=== PATIENT | female | born 1960 | race Caucasian/White ===

== ENCOUNTER 2016-09-03 08:00 | Inpatient (IN) | payer OTHER, BC ==
[2016-08-21 14:05] VITALS: BMI 18.4
[2016-09-07] MEDS ORDERED: CEFAZOLIN 1 GM/D5W 50 ML IVPB ONE (09:36)
[2016-09-07] MEDS ORDERED: ROPIVICAINE 0.2%/MORPH PF/KETOROLAC - 51ML DISP.SYRINGE IA ONE (09:36)
[2016-09-07] MEDS ORDERED: TRANEXAMIC ACID 1000 MG/10 ML VIAL IVPUSH ONE (09:36)
[2016-09-07] MEDS: CELECOXIB 200 MG CAPSULE PO ONE ×2 (10:00→15:19)
[2016-09-07] MEDS: oxyCODONE HCL 10 MG SUSTAINED ACTING TABLET PO ONE ×2 (10:00→15:19)
[2016-09-07] MEDS: GABAPENTIN 300 MG CAPSULE (FP) PO ONE ×2 (10:00→15:19)
[2016-09-07] MEDS ORDERED: BUPIVACAINE HCL/PF (5 MG/ML) 30 ML VIAL IJ ONE (10:08)
[2016-09-07] MEDS ORDERED: DEXAMETHASONE SOD PHOSPHATE/PF 10 MG/ML SDV ONE (10:08)
[2016-09-07] MEDS ORDERED: MIDAZOLAM HCL 2 MG/2 ML SINGLE DOSE VIAL ONE (10:08)
[2016-09-07] MEDS ORDERED: SODIUM CHLORIDE 0.9% P/F 10 ML VIAL IJ ONE (10:09)
[2016-09-07] MEDS ORDERED: ceFAZolin SODIUM 1 GM VIAL ONE ×2 (10:13→10:18)
[2016-09-07] MEDS ORDERED: PROPOFOL 20 ML ONE ×3 (10:13→13:49)
[2016-09-07] MEDS ORDERED: BUPIVACAINE HCL/PF 0.5% (5MG/ML) 10 ML VIAL ONE (10:16)
[2016-09-07] MEDS ORDERED: VANCOMYCIN 1,000 MG VIAL (RESTRICTED TO ID ONLY) ONE (10:18)
[2016-09-07 10:39] LABS: MCH 27.2 pg (25.7-33.7); MCHC 33.5 g/dl (32.0-36.0); MEAN CELL VOLUME 81.2 fl (80-96); MEAN PLT VOLUME 7.3 fl (7.5-11.1); PLATELET COUNT 485 K/MM3 (134-434); WHITE BLOOD COUNT 8.9 K/mm3 (4.0-10.8)
--- NOTE | 2016-09-07 11:28 | HP ---
Admitting History and Physical - Admission Chief Complaint: right knee OA History of Present Illness: 56yo female with R knee OA x several months, has severe pain and has failed conservative management. Indicated for TKA History Source: Patient, Medical Record Limitations to Obtaining History: No Limitations - Past Medical History ...LMP: 04/21/16 Heme/Onc: Yes: Anemia Rheumatology: Yes: Rheumatoid Arthritis Additional Past Medical History: See full PMH in written chart - Past Surgical History Additional Past Surgical History: See full PMH in written chart - Smoking History Smoking history: Former smoker Have you smoked in the past 12 months: No If you are a former smoker, when did you quit?: 2001 - Alcohol/Substance Use Hx Alcohol Use: Yes (SOCIALLY) Home Medications - Allergies Allergies/Adverse Reactions: Allergies Allergy/AdvReac Type Severity Reaction Status Date / Time No Known Drug Allergies Allergy Verified 08/21/16 13:54 - Home Medications Home Medications: Ambulatory Orders Ascorbate Calcium [Vitamin C] 1,000 mg PO DAILY 08/21/16 Calcium Carbonate [Calcium] 1,000 mg PO DAILY 08/21/16 Cholecalciferol (Vitamin D3) [Vitamin D3] 2,000 unit PO DAILY 08/21/16 Diclofenac Sodium [Voltaren -] 75 mg PO BID 08/21/16 Gabapentin 300 mg PO HS PRN 08/21/16 Glucosa Blakely 2Kcl/Chondroitin Blakely [Glucosamine & Chondroitin Cap] 1 each PO DAILY 08/21/16 Tramadol HCl 25 mg PO DAILY PRN 08/21/16 Physical Examination Vital Signs: Vital Signs Temperature 98.2 F 09/07/16 09:39 Pulse Rate 93 H 09/07/16 09:39 Respiratory Rate 18 09/07/16 09:39 Blood Pressure 121/81 09/07/16 09:39 O2 Sat by Pulse Oximetry (%) Constitutional: Yes: Well Nourished, No Distress, Calm Eyes: Yes: WNL, Conjunctiva Clear HENT: Yes: WNL, Atraumatic, Normocephalic Neck: Yes: WNL, Supple Cardiovascular: Yes: WNL, Regular Rate and Rhythm Respiratory: Yes: WNL, Regular Gastrointestinal: Yes: WNL, Soft ...Rectal Exam: Yes: Deferred Musculoskeletal: Yes: Joint Stiffness, Joint Swelling, Muscle Pain Extremities: Yes: WNL Edema: No Peripheral Pulses WNL: Yes Integumentary: Yes: WNL Neurological: Yes: WNL, Alert, Oriented ...Motor Strength: WNL Psychiatric: Yes: WNL, Alert, Oriented Labs: CBC, BMP 09/07/16 10:15 Laboratory Tests 09/07/16 10:15 WBC 8.9 Hgb 10.3 L Hct 30.8 L Plt Count 485 H Imaging - Results X-ray: Image Reviewed Problem List - Problems (1) Osteoarthritis of right knee Code(s): M17.11 - UNILATERAL PRIMARY OSTEOARTHRITIS, RIGHT KNEE Qualifiers: Osteoarthritis type: primary Qualified Code(s): M17.11 - Unilateral primary osteoarthritis, right knee Assessment/Plan 56yo female with R knee OA for TKA
[2016-09-07] MEDS ORDERED: ROPIVACAINE 0.2% 400ML 400 ML ML NR ONE (13:38)
[2016-09-07] MEDS ORDERED: ONDANSETRON 4 MG/2 ML VIAL IVPUSH PRN (13:50)
[2016-09-07] MEDS ORDERED: MAG HYDROX/AL HYDROX/SIMETH 30 ML UNIT-DOSE CUP PO PRN (14:52)
[2016-09-07] MEDS ORDERED: ONDANSETRON 4 MG/2 ML VIAL IVPB PRN (14:52)
[2016-09-07] MEDS ORDERED: MAGNESIUM HYDROX 2400MG/30ML ORAL SUSPENSION 30 ML CUP PO PRN (14:52)
--- NOTE | 2016-09-07 14:52 | OP ---
Operative Note - Note: Operative Date: 09/07/16 Pre-Operative Diagnosis: right knee OA Operation: right total knee replacement Post-Operative Diagnosis: Same as Pre-op Surgeon: Gulshan Pham Gate Attendant: Shyann Mast Anesthesia: Spinal Estimated Blood Loss (mls): 50
[2016-09-07] MEDS ORDERED: LACTATED RINGERS SOLUTION 1,000 ML IV SCH (15:00)
[2016-09-07] MEDS: LACTATED RINGERS SOLUTION 1,000 ML IV SCH (15:21)
[2016-09-07] MEDS: ACETAMINOPHEN 325 MG TABLET (FP) PO SCH ×3 (15:21→20:00)
[2016-09-07] MEDS: KETOROLAC TROMETHAMINE 30 MG/1 ML VIAL IVPUSH SCH ×2 (15:35→22:30)
[2016-09-07] MEDS: traMADol HCL 50 MG TABLET PO SCH ×3 (15:42→22:30)
[2016-09-07] MEDS: CEFAZOLIN 1 GM/D5W 50 ML IVPB SCH (17:58)
[2016-09-07] MEDS ORDERED: GABAPENTIN 300 MG CAPSULE (FP) PO SCH (22:00)
[2016-09-07] MEDS: CELECOXIB 200 MG CAPSULE PO SCH (22:30)
[2016-09-07] MEDS: SENNOSIDES/DOCUSATE COMBO (SENNA PLUS) TABLET (UD) PO SCH (22:31)
[2016-09-07] MEDS: oxyCODONE HCL 10 MG SUSTAINED ACTING TABLET PO SCH (22:31)
[2016-09-07] MEDS: GABAPENTIN 300 MG CAPSULE (FP) PO SCH (22:31)
[2016-09-07] MEDS: ASCORBIC ACID 500 MG TABLET (FP) PO SCH (22:31)
[2016-09-08] MEDS: CEFAZOLIN 1 GM/D5W 50 ML IVPB SCH (01:47)
[2016-09-08] MEDS: traMADol HCL 50 MG TABLET PO SCH ×4 (04:10→21:52)
[2016-09-08] MEDS: KETOROLAC TROMETHAMINE 30 MG/1 ML VIAL IVPUSH SCH ×2 (04:10→08:39)
[2016-09-08] MEDS: ACETAMINOPHEN 325 MG TABLET (FP) PO SCH ×4 (06:26→19:53)
[2016-09-08] MEDS: oxyCODONE HCL 5 MG TABLET PO PRN ×2 (06:27→12:48)
[2016-09-08 08:44] LABS: MCH 26.6 pg (25.7-33.7); MCHC 32.3 g/dl (32.0-36.0); MEAN CELL VOLUME 82.4 fl (80-96); MEAN PLT VOLUME 7.9 fl (7.5-11.1); PLATELET COUNT 475 K/MM3 (134-434); RDW 16.2 % (11.6-15.6); WHITE BLOOD COUNT 12.9 K/mm3 (4.0-10.8)
[2016-09-08 09:01] LABS: ANION GAP 9 (8-16); CALCIUM 8.6 mg/dl (8.4-10.2); CO2 24 mmol/L (22-28); CREATININE 0.5 mg/dl (0.6-1.3); GLUCOSE,RANDOM 79 mg/dl (74-106)
--- NOTE | 2016-09-08 09:34 | SURG ---
Surgery Wood Patternmaker Apprentice Note Wood Patternmaker Apprentice: Shyann Mast PA-C Date of Service: 09/08/16 Diagnosis: right knee OA Procedure: right total knee replacement I was present for the entirety of the operative procedure. For further detail, please refer to operative report. Visit type - Case Type Case Type: Scheduled Admission - Emergency Emergency Visit: No - New patient This patient is new to me today: Yes Date on this admission: 09/08/16 - Critical Care Critical Care patient: No
[2016-09-08] MEDS: oxyCODONE HCL 10 MG SUSTAINED ACTING TABLET PO SCH ×2 (09:59→21:49)
[2016-09-08] MEDS: PANTOPRAZOLE 40 MG TABLET (FP) PO SCH (10:00)
[2016-09-08] MEDS: SENNOSIDES/DOCUSATE COMBO (SENNA PLUS) TABLET (UD) PO SCH ×2 (10:00→21:52)
[2016-09-08] MEDS: ASCORBIC ACID 500 MG TABLET (FP) PO SCH ×2 (10:00→21:49)
[2016-09-08] MEDS: CELECOXIB 200 MG CAPSULE PO SCH ×2 (10:00→21:49)
[2016-09-08] MEDS: ASPIRIN 325 MG TABLET PO SCH (10:00)
[2016-09-08] MEDS: GABAPENTIN 300 MG CAPSULE (FP) PO SCH ×2 (10:00→21:49)
[2016-09-08] MEDS: MULTIVITAMINS (DAILY MVI) TABLET (FP) PO SCH (10:00)
--- NOTE | 2016-09-08 10:57 | PN ---
Progress Note (short form) - Note Progress Note: 56F POD1 s/p TKR under spinal anesthetic with CACB and tibial blocks doing well. AVSS, reports no anesthetic complications, reports that pain is well controlled. Sensory and motor function is intact in both lower extremities, catheter site is clean.
[2016-09-08] MEDS: LACTATED RINGERS SOLUTION 1,000 ML IV SCH (16:23)
[2016-09-09] MEDS: oxyCODONE HCL 5 MG TABLET PO PRN ×2 (01:00→06:51)
--- NOTE | 2016-09-09 01:09 | PN ---
Progress Note (short form) - Note Progress Note: Pt seen and examined yesterday (Wednesday) evening. Doing well. No complaints. AVSS Selected Entries 09/08/16 22:45 Temperature 98.1 F Pulse Rate 75 Respiratory 18 Rate Blood Pressure 121/52 Laboratory Tests 09/08/16 09/08/16 07:40 07:40 WBC 12.9 H D Hgb 9.0 L D Hct 27.9 L Plt Count 475 H Sodium 135 L Potassium 4.4 Chloride 102 Carbon Dioxide 24 Anion Gap 9 BUN 18 Creatinine 0.5 L Random Glucose 79 Calcium 8.6 Gen:NAD RLE: c/d/i, NVID A/P POD#1 s/p R TKA 1. PT/OOB 2. D/C home tomorrow. Problem List - Problems (1) Osteoarthritis of right knee Code(s): M17.11 - UNILATERAL PRIMARY OSTEOARTHRITIS, RIGHT KNEE Qualifiers: Osteoarthritis type: primary Qualified Code(s): M17.11 - Unilateral primary osteoarthritis, right knee
--- NOTE | 2016-09-09 01:43 | DS ---
Physical Examination Vital Signs: Vital Signs Temperature 98.1 F 09/08/16 22:45 Pulse Rate 75 09/08/16 22:45 Respiratory Rate 18 09/08/16 22:45 Blood Pressure 121/52 09/08/16 22:45 O2 Sat by Pulse Oximetry (%) 98 09/08/16 22:45 Labs: CBC, BMP 09/08/16 07:40 09/08/16 07:40 Discharge Summary Reason For Visit: RIGHT KNEE OSTEOARTHRITIS Current Active Problems Osteoarthritis of right knee (Acute) Procedures: Principal: right total knee replacement Hospital Course: Admitted for elective surgery. Procedure performed without complications. Pt received postoperative antibiotic prophylaxis and DVT ppx. Ambulated with physical therapy. Stable for discharge home with outpatient followup. Condition: Stable - Instructions Diet, Activity, Other Instructions: Dr. Pham - Knee Replacement Instructions Keep the Aquacel dressing on until removed in the office in 10-14 days - it is antibacterial and waterproof and you can shower with it on. Call the office for a follow-up appointment with Dr. Frances (Dr. Pham will be out of town on vacation) in 10-14 days. [phone] Take one Aspirin 325mg daily for 6 weeks to prevent blood clots in your legs. Take one Pantoprazole 40mg daily for 6 weeks to protect against heartburn and ulcers. Take Celebrex 200mg twice daily for 30 days to reduce swelling and inflammation. Stop taking Diclofenac until you are done with the Celebrex. Take a multivitamin, vitamin C supplement, and stool softener daily. For pain: *Mild pain (1-3/10): Take 1 Tramadol tablet every 4 hours as needed. Moderate pain (4-6/10): Take 1 Tramadol tablet and 1 Percocet tablet every 4 hours as needed. Severe pain (7-10/10): Take 1 Tramadol tablet and 2 Percocet tablets every 4 hours as needed. Activity: You can put as much weight on the operative leg as you want. Right after you get home, there will be a physical therapist coming to your house to help you walk around and bend/straighten your knee. After your follow-up appointment, you will be sent for more intensive outpatient physical therapy which will include machines and equipment that the home therapist cannot bring to your house. Always use a walker or cane for balance and to prevent falls. Disposition: VNS/HOME HEALTH CARE - Home Medications Comprehensive Discharge Medication List: Ambulatory Orders Ascorbate Calcium [Vitamin C] 1,000 mg PO DAILY 08/21/16 Calcium Carbonate [Calcium] 1,000 mg PO DAILY 08/21/16 Cholecalciferol (Vitamin D3) [Vitamin D3] 2,000 unit PO DAILY 08/21/16 Gabapentin 300 mg PO HS PRN 08/21/16 Glucosa Blakely 2Kcl/Chondroitin Blakely [Glucosamine & Chondroitin Cap] 1 each PO DAILY 08/21/16 Ascorbic Acid [Vitamin C -] 500 mg PO BID tablet 09/09/16 Aspirin [ASA -] 325 mg PO DAILY@0800 tablet 09/09/16 Celecoxib [CeleBREX -] 200 mg PO BID #60 tab 09/09/16 Multivitamins [Multivit ([facility] Formulary)] 1 tab PO DAILY tab 09/09/16 Oxycodone HCl/Acetaminophen [Percocet 5-325 mg Tablet] 1 - 2 tab PO Q4H PRN #60 tablet MDD 8 09/09/16 Pantoprazole Sodium [Protonix -] 40 mg PO DAILY #40 tab 09/09/16 Sennosides/Docusate Sodium [Pericolace -] 1 tablet PO BID tablet 09/09/16 Tramadol HCl [Ultram -] 50 mg PO Q4H PRN #90 tablet MDD 6 09/09/16
[2016-09-09] MEDS: ACETAMINOPHEN 325 MG TABLET (FP) PO SCH ×2 (03:20→08:03)
[2016-09-09] MEDS: traMADol HCL 50 MG TABLET PO SCH ×2 (03:22→09:23)
[2016-09-09 06:40] VITALS: BP 125/59; PULSE 87; TEMP 98.4
[2016-09-09] MEDS: ASPIRIN 325 MG TABLET PO SCH (08:03)
[2016-09-09 09:23] LABS: MCH 26.9 pg (25.7-33.7); MCHC 32.7 g/dl (32.0-36.0); MEAN CELL VOLUME 82.3 fl (80-96); MEAN PLT VOLUME 7.9 fl (7.5-11.1); PLATELET COUNT 392 K/MM3 (134-434); RDW 16.6 % (11.6-15.6)
[2016-09-09] MEDS: GABAPENTIN 300 MG CAPSULE (FP) PO SCH (09:23)
[2016-09-09] MEDS: MULTIVITAMINS (DAILY MVI) TABLET (FP) PO SCH (09:23)
[2016-09-09] MEDS: CELECOXIB 200 MG CAPSULE PO SCH (09:23)
[2016-09-09] MEDS: PANTOPRAZOLE 40 MG TABLET (FP) PO SCH (09:23)
[2016-09-09] MEDS: ASCORBIC ACID 500 MG TABLET (FP) PO SCH (09:23)
[2016-09-09] MEDS: SENNOSIDES/DOCUSATE COMBO (SENNA PLUS) TABLET (UD) PO SCH (09:23)
[2016-09-09] MEDS: oxyCODONE HCL 10 MG SUSTAINED ACTING TABLET PO SCH (09:24)
--- NOTE | 2016-09-09 11:12 | PN ---
Progress Note (short form) - Note Progress Note: POD #2- s/p right total knee replacement under spinal anesthesia/peripheral nerve block. Pt. doing well, getting ready for discharge. Good pain control. Adductor canal catheter removed intact. Discharge pain meds as per ortho.
--- NOTE | 2016-09-09 12:43 | PN ---
Progress Note (short form) - Note Progress Note: Pt seen and examined this morning. Doing well. No complaints. AVSS Selected Entries 09/09/16 09/09/16 06:00 06:39 Temperature 98.4 F Pulse Rate 87 Respiratory 18 Rate Blood Pressure 125/59 O2 Sat by Pulse 99 Oximetry (%) Oxygen Delivery Room Air Method Laboratory Tests 09/09/16 07:47 WBC 9.0 D Hgb 8.6 L Hct 26.4 L Plt Count 392 Gen:NAD RLE: c/d/i, NVID A/P POD#2 s/p R TKA 1. PT/OOB 2. D/C home Problem List - Problems (1) Osteoarthritis of right knee Code(s): M17.11 - UNILATERAL PRIMARY OSTEOARTHRITIS, RIGHT KNEE Qualifiers: Osteoarthritis type: primary Qualified Code(s): M17.11 - Unilateral primary osteoarthritis, right knee
--- NOTE | 2016-09-09 14:39 | PATH ---
Surgical Pathology Report Patient Name: GLENROY FIGUEROA Med. Rec. #: [id number] /Age/Gender: 1960 (Age: 56) / F Account: [id number] Location: [facility] MED[facility] Taken: 09/07/2016 Received: 09/07/2016 Reported: 09/09/2016 Physicians: Gulshan Pham M.D. Specimen(s) Received BONE RIGHT KNEE Clinical History Right knee osteoarthritis Final Diagnosis BONE AND SOFT TISSUE, RIGHT KNEE, REPLACEMENT: DEGENERATIVE JOINT DISEASE. Electronically Signed Yaakov Reese M.D. Gross Description Received in formalin labeled "bone right knee," is an 11.0 x 9.0 x 2.1 cm aggregate of multiple irregular portions of bone and soft tissue. The tibial plateau measures 7.2 x 5.3 x 1.4 cm. There is a 1.3 cm greatest dimension area of eburnation present. The remaining articular surfaces are wagoner-yellow and focally granular. The underlying trabecular bone is yellow and hard. Fur Coat Sewer sections are submitted in one cassette, following decalcification. 09/08/2016 [facility]09/08/2016
--- NOTE | 2016-10-01 20:08 | SPEC ---
DATE OF OPERATION: 09/07/2016 PREOPERATIVE DIAGNOSIS: Right knee osteoarthritis. POSTOPERATIVE DIAGNOSIS: Right knee osteoarthritis. PROCEDURE: Right total knee replacement. ATTENDING: Gulshan Pham MD PHARMACY SERVICES DIRECTOR: GARCIA Nieves ANESTHESIA: Spinal plus sedation. ESTIMATED BLOOD LOSS: 50 mL. COMPLICATIONS: None. SPECIMENS: Resected bone was sent for pathology analysis. DISPOSITION: The patient was transferred to the PACU in stable condition. INDICATIONS: This is a 56-year-old female who presented to the office complaining of severe right knee pain. She was seen and examined by Dr. Pham and diagnosed with right knee osteoarthritis. She was initially treated nonoperatively with injections, medications, and physical therapy but continued to have severe pain and ambulatory dysfunction. The patient was subsequently indicated for a total knee replacement. The risks, benefits and alternatives to the procedure were explained to the patient in great detail and she elected to proceed with the surgery. On the day of surgery, the patient was taken to the operating room and placed on the OR table. Spinal anesthesia was administered by the anesthesiologist. The patient was then positioned supine on the table and all bony prominences were padded. A nonsterile tourniquet was placed on the proximal thigh. The knee was then prepped and draped in the usual sterile fashion and intravenous antibiotics were given for infection prophylaxis. A surgical time-out was then performed with the team, and the patients identity, procedure, side, availability of implants, and the administration of antibiotics was confirmed. The leg was then elevated and exsanguinated, and the tourniquet was inflated. With the knee flexed, a midline incision was made and carried down through the subcutaneous fat to the underlying retinaculum. A medial parapatellar arthrotomy was performed. This was followed by a subperiosteal dissection of the tissue off the proximal, medial tibia. A portion of fat pad was removed from under the patellar tendon, and a small portion of fat was excised off the distal supracondylar femur. The knee was then flexed further and the anterior horn of the lateral meniscus was released from the midline. Next, the anterior and posterior cruciate ligaments were transected. Osteophytes were removed from both the femur and tibia. Grade 4 changes were noted diffusely throughout the knee. Hohmann retractors were then placed around the distal femur. The starting drill was used to enter the intramedullary canal. The starting point had been chosen by checking the radiographs and anatomy. Proper alignment and intramedullary placement was then confirmed by placing the long narrow francisco into the femur. Next, the distal femoral cutting guide was adjusted to 6 degrees of valgus and pinned to the femur. The bone resection was assessed using an samy-wing. An approximately 10mm distal cut was made and the cut pieces measured. Once this was complete, the sizing guide was used to determine which size femoral component should be used. Next, the appropriately sized 4-in-1 cutting block was then placed at the correct amount of external rotation and the samy wing was used to assure that there would be no notching of the anterior cortex of the femur. Once this was done, Hohmann retractors were used to protect the medial and lateral collateral ligaments, and all appropriate bone cuts were made. Attention was then turned to the tibia. Hohmann retractors were used to translate the tibia anteriorly and protect the collateral ligaments. The medial and lateral menisci were removed. The extramedullary tibial alignment guide was then placed and adjusted for rotation, varus/valgus, and slope. The height of the cutting block was adjusted to the level of the desired bone resection and then pinned in place. The proximal tibia was then cut with a saw and the bone was removed and measured. Once this was completed, trial components were placed and the knee was taken through a full range of motion. Soft tissue balance was assessed in both flexion and extension and found to be appropriate. The knee was stable throughout the full range of motion. The knee was then put into extension and the patella everted. The synovium around the patella was circumscribed with electrocautery. A caliper was used to measure the patellar thickness and a saw was then used to resect the patella at the chondro-osseous junction. The cut surface was then sized and drilled for the appropriate patellar button, with care taken to medialize it. A trial patella was then placed and the knee was again taken through a full range of motion. The knee was found to have both good balance and good patellar tracking. All of the components were removed except the tibial base plate. The appropriate instrumentation was used to drill and punch the proximal tibia for the keel of the final component. All bony surfaces were then cleaned with pulsatile lavage and dried. Bone cement was then prepared on the back table, and final components were cemented in place in the usual fashion. Extruded cement was removed. The polyethylene trial was placed, the knee was put into extension, and axial pressure was applied for compression while the cement hardened. The patellar button was similarly cemented into place. Once the cement had hardened, the knee was taken through a full range of motion to assess stability, balance, and patellar tracking. This was found to be optimal and the trial polyethylene was exchanged for the appropriately sized real implant. The wound was then thoroughly irrigated with normal saline. No. 1 Polysorb and 0 VLoc 180 barbed sutures were used to close the arthrotomy. No. 1 Polysorb and 2-0 Polysorb sutures were used in the subcutaneous tissues. The skin was closed using both 3-0 VLoc 90 suture in a running subcuticular fashion and SwiftSet skin adhesive. Once this was completed a sterile Aquacel dressing and compressive Carlos-wrap was applied. The tourniquet was then deflated and the patient was awakened and taken to the PACU in stable condition. Katerina [id number]
== END 2016-09-09 11:40 | disposition home health service (06) | DRG 470 ==
LOC: FM/S 09-07 09:00
PROVIDERS: ADMIT Student in an Organized Health Care Education/Training Program; ATTEND Student in an Organized Health Care Education/Training Program
PROC: 0SRC0J9 Replacement of Right Knee Joint with Synthetic Substitute, Cemented, Open Approach (ICD-10-PCS; principal; 2016-09-07 12:40)
DX: M17.11 Unilateral primary osteoarthritis, right knee (principal); D64.9 Anemia, unspecified; M06.80 Other specified rheumatoid arthritis, unspecified site; Z87.891 Personal history of nicotine dependence
CPT/HCPCS: 36415; 73560-TC-RT; 80048; 84703; 85027; 88305-TC; 88311-TC; 97116-GP; 97162-PG

== ENCOUNTER 2018-09-05 05:54 | Inpatient (IN) | payer OTHER, BC ==
[2018-08-29 11:55] VITALS: BMI 25.8
[2018-09-05] MEDS ORDERED: CEFAZOLIN 2 GM/D5W 2 GM/50 ML ML IVPB ONE (06:44)
[2018-09-05] MEDS ORDERED: TRANEXAMIC ACID 1000 MG/10 ML VIAL IVPUSH ONE (06:44)
[2018-09-05] MEDS ORDERED: PANTOPRAZOLE 40 MG TABLET (FP) ONE (07:09)
[2018-09-05] MEDS ORDERED: GABAPENTIN 300 MG CAPSULE (FP) ONE (07:10)
[2018-09-05] MEDS ORDERED: oxyCODONE HCL 10 MG SUSTAINED ACTING TABLET ONE (07:10)
[2018-09-05] MEDS ORDERED: CELECOXIB 200 MG CAPSULE ONE (07:10)
--- NOTE | 2018-09-05 07:13 | HP ---
Admitting History and Physical - Admission Chief Complaint: left knee osteoarthritis x years History of Present Illness: 58 year old female presents in regard to her left knee. Longstanding history of left knee osteoarthritis. Patient complains of pain, limited ROM, difficulty ambulating and difficulty completing activities of daily living. Patient has failed conservative treatment measures including PO medications, injections, exercise programs and activity modifications. At this point, patient would like to proceed with surgical intervention - left total knee arthroplasty, MAKOplasty. History Source: Patient - Past Medical History ...LMP: 04/21/16 Heme/Onc: Yes: Anemia Rheumatology: Yes: Rheumatoid Arthritis - Past Surgical History Additional Past Surgical History: See written history and physical. - Smoking History Smoking history: Former smoker Have you smoked in the past 12 months: No If you are a former smoker, when did you quit?: 2001 - Alcohol/Substance Use Hx Alcohol Use: Yes (SOCIALLY) Home Medications - Allergies Allergies/Adverse Reactions: Allergies Allergy/AdvReac Type Severity Reaction Status Date / Time No Known Drug Allergies Allergy Verified 08/29/18 11:48 tramadol [From Ultra] AdvReac Severe DIZZINESS Verified 09/05/18 06:55 - Home Medications Home Medications: Ambulatory Orders Multivitamins [Multivit ([facility] Formulary)] 1 tab PO DAILY tab 09/09/16 Tofacitinib Citrate [Xeljanz] 5 mg PO BID 08/29/18 Review of Systems - Review of Systems Musculoskeletal: reports: Crepitus (left knwe), Decreased ROM (left knee), Joint Pain (left knee) Physical Examination Vital Signs: Vital Signs Temperature 98 F 09/05/18 06:57 Pulse Rate 79 09/05/18 06:57 Respiratory Rate 16 09/05/18 06:57 Blood Pressure 140/81 09/05/18 06:57 O2 Sat by Pulse Oximetry (%) Constitutional: Yes: Well Nourished, No Distress Eyes: Yes: Conjunctiva Clear HENT: Yes: Atraumatic Neck: Yes: Supple Cardiovascular: Yes: Regular Rate and Rhythm Respiratory: Yes: Regular Gastrointestinal: Yes: Soft ...Rectal Exam: Yes: Deferred Musculoskeletal: Yes: Joint Stiffness (left knee), Joint Swelling (left knee) Assessment/Plan 58 year old female presents in regard to her left knee. Longstanding history of left knee osteoarthritis. Patient complains of pain, limited ROM, difficulty ambulating and difficulty completing activities of daily living. Patient has failed conservative treatment measures including PO medications, injections, exercise programs and activity modifications. At this point, patient would like to proceed with surgical intervention - left total knee arthroplasty, MAKOplasty. Pros, cons, risks, benefits and alternatives of a left total knee arthroplasty, MAKOplasty were discussed with the patient at length. Patient confirms her understanding and consents to proceed with a left total knee arthroplasty, MAKOplasty.
[2018-09-05] MEDS: PANTOPRAZOLE 40 MG TABLET (FP) PO ONE (07:15)
[2018-09-05] MEDS: GABAPENTIN 300 MG CAPSULE (FP) PO ONE (07:15)
[2018-09-05] MEDS: oxyCODONE HCL 10 MG SUSTAINED ACTING TABLET PO ONE (07:15)
[2018-09-05] MEDS: CELECOXIB 200 MG CAPSULE PO ONE (07:15)
[2018-09-05] MEDS ORDERED: BUPIVACAINE LIPOSOME/PF (EXPAREL) 266 MG/20 ML VIAL ONE (07:22)
[2018-09-05] MEDS ORDERED: MIDAZOLAM HCL 2 MG/2 ML SINGLE DOSE VIAL ONE ×2 (07:22→09:06)
[2018-09-05] MEDS ORDERED: VANCOMYCIN 1,000 MG VIAL (RESTRICTED TO ID ONLY) ONE (07:37)
[2018-09-05] MEDS ORDERED: TRANEXAMIC ACID 1000 MG/10 ML VIAL ONE ×3 (07:37→11:20)
[2018-09-05] MEDS ORDERED: ceFAZolin SODIUM 1 GM VIAL ONE ×2 (07:37→08:45)
[2018-09-05] MEDS ORDERED: DEXAMETHASONE SOD PHOSPHATE 4 MG/1 ML VIAL ONE (08:55)
[2018-09-05] MEDS ORDERED: ONDANSETRON 4 MG/2 ML VIAL ONE (08:55)
[2018-09-05] MEDS ORDERED: VANCOMYCIN 1,000 MG VIAL (RESTRICTED TO ID ONLY) IVPB ONE ×2 (09:08→10:57)
[2018-09-05] MEDS ORDERED: TRANEXAMIC ACID 1000 MG/10 ML VIAL IVPB ONE ×2 (09:08→10:57)
[2018-09-05] MEDS ORDERED: ACETAMINOPHEN INJECTION 100 ML IVPB ONE (11:52)
[2018-09-05] MEDS ORDERED: KETOROLAC TROMETHAMINE 30 MG/1 ML VIAL ONE (11:52)
[2018-09-05] MEDS ORDERED: ACETAMINOPHEN 1000 MG/100 ML VIAL (NON FORMULARY) IVPB ONE ×2 (11:54→12:07)
[2018-09-05] MEDS ORDERED: ONDANSETRON 4 MG/2 ML VIAL IVPUSH PRN ×2 (11:54→12:04)
--- NOTE | 2018-09-05 11:58 | OP ---
Operative Note - Note: Operative Date: 09/05/18 Pre-Operative Diagnosis: left knee OA Operation: left CLARY TKA Post-Operative Diagnosis: Same as Pre-op Surgeon: Gulshan Pham Still Operator Gin: Joanne Steward Anesthesia: Spinal Estimated Blood Loss (mls): 100
[2018-09-05] MEDS ORDERED: LACTATED RINGERS SOLUTION 1,000 ML IV SCH ×2 (12:00→12:15)
[2018-09-05] MEDS ORDERED: MAGNESIUM HYDROX 2400MG/30ML ORAL SUSPENSION 30 ML CUP PO PRN (12:04)
[2018-09-05] MEDS ORDERED: MAG HYDROX/AL HYDROX/SIMETH 30 ML UNIT-DOSE CUP PO PRN (12:04)
[2018-09-05] MEDS: KETOROLAC TROMETHAMINE 30 MG/1 ML VIAL IVPUSH SCH ×2 (12:15→18:44)
[2018-09-05] MEDS: CEFAZOLIN 2 GM/D5W 2 GM/50 ML ML IVPB SCH (18:43)
[2018-09-05] MEDS: oxyCODONE HCL 5 MG TABLET PO PRN (18:45)
[2018-09-05] MEDS ORDERED: DEXAMETHASONE SOD PHOSPHATE 10 MG/1 ML VIAL IVPB ONE (20:00)
[2018-09-05] MEDS: CELECOXIB 200 MG CAPSULE PO SCH (21:13)
[2018-09-05] MEDS: SENNOSIDES/DOCUSATE COMBO (SENNA PLUS) TABLET (UD) PO SCH (21:13)
[2018-09-05] MEDS: GABAPENTIN 300 MG CAPSULE (FP) PO SCH (21:13)
[2018-09-05] MEDS: oxyCODONE HCL 10 MG SUSTAINED ACTING TABLET PO SCH (21:14)
[2018-09-05] MEDS: ASCORBIC ACID 500 MG TABLET (FP) PO SCH (21:14)
[2018-09-05] MEDS ORDERED: GABAPENTIN 300 MG CAPSULE (FP) PO SCH (22:00)
[2018-09-06] MEDS: KETOROLAC TROMETHAMINE 30 MG/1 ML VIAL IVPUSH SCH ×2 (00:10→06:01)
[2018-09-06] MEDS: CEFAZOLIN 2 GM/D5W 2 GM/50 ML ML IVPB SCH (03:00)
[2018-09-06 07:01] LABS: HEMOGLOBIN 9.9 GM/dl (10.7-15.3); MCH 29.7 pg (25.7-33.7); MEAN CELL VOLUME 89.9 fl (80-96); MEAN PLT VOLUME 8.2 fl (7.5-11.1); PLATELET COUNT 317 K/MM3 (134-434); RBC 3.34 M/mm3 (3.60-5.2); RDW 12.1 % (11.6-15.6); WHITE BLOOD COUNT 8.2 K/mm3 (4.0-10.8)
[2018-09-06 07:09] LABS: ANION GAP 7 MMOL/L (8-16); BLOOD UREA NITROGEN 17 mg/dl (7-18); CALCIUM 8.7 mg/dl (8.5-10); CHLORIDE 106 mmol/L (98-107); CO2 24 mmol/L (21-32); CREATININE 0.7 mg/dl (0.55-1.3); GLUCOSE,RANDOM 164 mg/dl (74-106); SODIUM 137 mmol/L (136-145)
[2018-09-06] MEDS: PANTOPRAZOLE 40 MG TABLET (FP) PO ONE (07:21)
[2018-09-06] MEDS: GABAPENTIN 300 MG CAPSULE (FP) PO ONE (07:21)
[2018-09-06] MEDS: CELECOXIB 200 MG CAPSULE PO ONE (07:21)
[2018-09-06] MEDS: oxyCODONE HCL 10 MG SUSTAINED ACTING TABLET PO ONE (07:21)
[2018-09-06] MEDS: ASPIRIN 325 MG TABLET PO SCH (07:32)
--- NOTE | 2018-09-06 08:56 | PN ---
Progress Note (short form) - Note Progress Note: ANESTHESIA POSTOP 58 YO female POD#1 s/p L TKA, spinal anesthesia and PNB Patient sitting comfortably in chair using cell phone. She reports little to no pain. Tolerating PO. Using IS and awaiting her PT appointment. VSS, Afebrile Encouraged PT and IS. Continue current care.
[2018-09-06] MEDS: GABAPENTIN 300 MG CAPSULE (FP) PO SCH ×2 (09:21→21:34)
[2018-09-06] MEDS: ASCORBIC ACID 500 MG TABLET (FP) PO SCH ×2 (09:21→21:35)
[2018-09-06] MEDS: PANTOPRAZOLE 40 MG TABLET (FP) PO SCH (09:21)
[2018-09-06] MEDS: CELECOXIB 200 MG CAPSULE PO SCH ×2 (09:22→21:34)
[2018-09-06] MEDS: SENNOSIDES/DOCUSATE COMBO (SENNA PLUS) TABLET (UD) PO SCH ×2 (09:22→21:34)
[2018-09-06] MEDS: MULTIVITAMINS (DAILY MVI) TABLET (FP) PO SCH (09:22)
[2018-09-06] MEDS: oxyCODONE HCL 10 MG SUSTAINED ACTING TABLET PO SCH ×2 (09:22→21:35)
[2018-09-06] MEDS: oxyCODONE HCL 5 MG TABLET PO PRN ×2 (15:17→19:48)
[2018-09-07] MEDS: oxyCODONE HCL 5 MG TABLET PO PRN ×3 (05:43→13:29)
[2018-09-07 08:22] LABS: HEMATOCRIT 27.5 % (32.4-45.2); HEMOGLOBIN 9.1 GM/dl (10.7-15.3); MCH 29.9 pg (25.7-33.7); MCHC 33.1 g/dl (32.0-36.0); MEAN CELL VOLUME 90.2 fl (80-96); MEAN PLT VOLUME 8.4 fl (7.5-11.1); PLATELET COUNT 277 K/MM3 (134-434); RBC 3.05 M/mm3 (3.60-5.2); RDW 12.4 % (11.6-15.6); WHITE BLOOD COUNT 5.4 K/mm3 (4.0-10.8)
--- NOTE | 2018-09-07 08:29 | DS ---
Physical Examination Vital Signs: Vital Signs Temperature 99.2 F 09/07/18 05:00 Pulse Rate 76 09/07/18 05:00 Respiratory Rate 16 09/07/18 08:18 Blood Pressure 105/60 09/07/18 05:00 O2 Sat by Pulse Oximetry (%) 99 09/07/18 08:18 Labs: CBC, BMP 09/06/18 06:30 Discharge Summary Reason For Visit: LEFT KNEE OSTEOARTHRITIS Current Active Problems Osteoarthritis of left knee (Acute) Procedures: Principal: left CLARY TKA Hospital Course: Admitted for elective surgery. Procedure performed without complications. Pt received postoperative antibiotic prophylaxis and DVT ppx. Ambulated with physical therapy. Stable for discharge home with outpatient followup. Condition: Stable - Instructions Diet, Activity, Other Instructions: Dr. Pham - Knee Replacement Instructions Keep the Aquacel dressing on until removed by Dr. Pham in 10-14 days - it is antibacterial and waterproof and you can shower with it on. Call the office for a follow-up appointment with Dr. Pham in 10-14 days. Take one Aspirin 325mg daily for 6 weeks to prevent blood clots in your legs. Take one Pantoprazole 40mg daily for 6 weeks to protect against heartburn and ulcers. Take Cephalexin (antibiotic) 3x/day for 10 days to help prevent skin infection. Take Celebrex 200mg twice daily for 30 days to reduce swelling and inflammation. Take a multivitamin, stool softener, and extra Vitamin C supplement daily. For pain: Take 1 -2 Percocet tablets every 4 hours as needed. Activity: You can put as much weight on the operative leg as you want. Right after you get home, there will be a physical therapist coming to your house to help you walk around and bend/straighten your knee. After your follow-up appointment, you will be sent for more intensive outpatient physical therapy which will include machines and equipment that the home therapist cannot bring to your house. Always use a walker or cane for balance and to prevent falls. Expect to see swelling/bruising from the operative site all the way down to your toes. Wear the compression stocking on the operative side during the day to minimize how much swelling there is in your foot/ankle. Don't wear the stocking at night. You don't have to wear a stocking on the other side. Disposition: VNS/HOME HEALTH CARE - Home Medications Comprehensive Discharge Medication List: Ambulatory Orders Multivitamins [Multivit ([facility] Formulary)] 1 tab PO DAILY tab 09/09/16 Ascorbic Acid [Vitamin C -] 500 mg PO BID tablet 09/07/18 Aspirin [ASA -] 325 mg PO DAILY@0800 tablet 09/07/18 Celecoxib [CeleBREX -] 200 mg PO BID #60 capsule 09/07/18 Cephalexin Monohydrate [Keflex -] 500 mg PO TID #30 capsule 09/07/18 Oxycodone HCl/Acetaminophen [Percocet 5-325 mg Tablet] 1 - 2 tab PO Q4H PRN #60 tablet MDD 10 09/07/18 Pantoprazole Sodium [Protonix -] 40 mg PO DAILY #40 tablet.ec 09/07/18 Sennosides/Docusate Sodium [Pericolace -] 2 tablet PO BID tablet 09/07/18
[2018-09-07] MEDS: ASPIRIN 325 MG TABLET PO SCH (08:43)
[2018-09-07] MEDS: oxyCODONE HCL 10 MG SUSTAINED ACTING TABLET PO SCH (09:07)
[2018-09-07] MEDS: CELECOXIB 200 MG CAPSULE PO SCH (09:08)
[2018-09-07] MEDS: PANTOPRAZOLE 40 MG TABLET (FP) PO SCH (09:08)
[2018-09-07] MEDS: SENNOSIDES/DOCUSATE COMBO (SENNA PLUS) TABLET (UD) PO SCH (09:08)
[2018-09-07] MEDS: ASCORBIC ACID 500 MG TABLET (FP) PO SCH (09:08)
[2018-09-07] MEDS: MULTIVITAMINS (DAILY MVI) TABLET (FP) PO SCH (09:08)
[2018-09-07] MEDS: GABAPENTIN 300 MG CAPSULE (FP) PO SCH (09:08)
--- NOTE | 2018-09-07 12:06 | PATH ---
Surgical Pathology Report Patient Name: GLENROY FIGUEROA Med. Rec. #: [id number] /Age/Gender: 1960 (Age: 58) / F Account: [id number] Location: [facility] MED[facility] Taken: 09/05/2018 Received: 09/05/2018 Reported: 09/07/2018 Physicians: Gulshan Pham M.D. Specimen(s) Received LEFT KNEE BONE Clinical History Left knee osteoarthritis Final Diagnosis BONE AND SOFT TISSUE, LEFT KNEE, REPLACEMENT: DEGENERATIVE JOINT DISEASE. Electronically Signed Yaakov Reese M.D. Gross Description Received in formalin labeled "left knee bone," is a 12.0 x 8.5 x 2.0 cm aggregate of multiple portions of bone and soft tissue. The tibial plateau measures 7.5 x 5.5 x 1.4 cm. There is a 2.4 cm greatest dimension area of eburnation identified. The remaining articular surfaces are wagoner-yellow and diffusely granular. The underlying trabecular bone is yellow and hard. Syrup Machine Laborer sections are submitted in one cassette, following decalcification. /09/06/2018 [facility]09/06/2018
[2018-09-07 13:58] VITALS: BP 120/64; PULSE 72; TEMP 98.6
--- NOTE | 2018-09-08 12:03 | SPEC ---
DATE OF OPERATION: 09/05/2018 PREOPERATIVE DIAGNOSIS: Left knee osteoarthritis. POSTOPERATIVE DIAGNOSIS: Left knee osteoarthritis. PROCEDURE: Left total knee replacement with MAKOplasty robotic navigation. SURGEON: Estrella Ramos MD MANAGER PORTABLE: GARCIA Woodruff ANESTHESIA: Spinal plus sedation. ESTIMATED BLOOD LOSS: 100 mL. COMPLICATIONS: None. DISPOSITION: The patient was transferred to the PACU in stable condition. IMPLANTS USED: [employer] Triathlon size 5 femoral component, [place] Triathlon size 4 tibial component, 13-mm posterior stabilized polyethylene component, 32-mm patellar component. INDICATIONS: This is a 58-year-old female with a long history of rheumatoid arthritis who initially saw ga for bilateral knee pain and was diagnosed with severe bilateral knee osteoarthritis. She underwent a right total knee replacement in 2017 and did very well. She went on to develop severe left knee osteoarthritis and failed conservative management. She was therefore indicated for a left total knee replacement. The risks, benefits, and alternatives to the procedure were explained to the patient in great detail, and she elected to proceed with the surgery. DESCRIPTION OF PROCEDURE: On the day of surgery, the patient was taken to the operating room and placed on the OR table. Spinal anesthesia was administered by the anesthesiologist. The patient was then positioned supine on the table and all bony prominences were padded. The knee was then prepped and draped in the usual sterile fashion and intravenous antibiotics were given for infection prophylaxis. A surgical time-out was then performed with the team, and the patients identity, procedure, side, availability of implants, and the administration of antibiotics was confirmed. With the knee flexed, a midline incision was made and carried down through the subcutaneous fat to the underlying retinaculum. A medial parapatellar arthrotomy was performed. This was followed by a subperiosteal dissection of the tissue off the proximal, medial tibia. A portion of fat pad was removed from under the patellar tendon, and a small portion of fat was excised off the distal supracondylar femur. Electrocautery and an Aqu[employer]ant[employer] bipolar sealing device were used to achieve hemostasis. The knee was then flexed further and the anterior horn of the lateral meniscus was released from the midline. Next, the anterior and posterior cruciate ligaments were transected. Grade 4 changes were noted diffusely throughout the knee. Femoral and tibial checkpoints were then placed in the appropriate location using a mallet. Two parallel bicortical self-drilling pins were placed in the tibial diaphysis after making stab incisions and bluntly dissecting down to bone. Two pins were then placed in the distal supracondylar femur. The [employer] navigation arrays were then attached to both the femoral and tibial pins and the lower extremity was then registered to the robotic navigation device using various joint movements, as well as inputting several dozen reference points. The knee was then taken through a full range of motion with a corrective force applied. Alignment in varus/valgus as well as flexion/extension and soft tissue balance was measured in various positions. The navigation device showed a numerical and graphic representation of the soft tissue balance. The components were repositioned virtually using the software until optimal soft tissue balance was achieved on screen. Once this was accomplished, the final plan was saved and sent to the robot. Self-retaining retractors were then placed at the joint line for exposure and protection of the collateral ligaments. The robot was brought into the sterile field and registered with the navigation device. The robotic arm with attached oscillating saw blade was then used to perform femoral and tibial bone cuts as per the saved software plan. The femoral box cut was made using the appropriately sized manual cutting guide. The knee was then irrigated. Trial components were placed and the knee was taken through a full range of motion to assess soft tissue balance and alignment. The range of motion was found to be excellent and the soft tissue balance was optimal and according to plan. The knee was then put into extension and the patella everted. The synovium around the patella was circumscribed with electrocautery. A caliper was used to measure the patellar thickness and a saw was then used to resect the patella at the chondro-osseous junction. The cut surface was then sized and drilled for the appropriate patellar button, with care taken to medialize it. A trial patella was then placed and the knee was again taken through a full range of motion. The knee was found to have both good balance and good patellar tracking. All of the components were removed except the tibial base plate. The appropriate instrumentation was used to drill and punch the proximal tibia for the keel of the final component. All bony surfaces were then cleaned with pulsatile lavage and dried. Bone cement was then prepared on the back table, and final components were cemented in place in the usual fashion. Extruded cement was removed. The polyethylene trial was placed, the knee was put into extension, and axial pressure was applied for compression while the cement hardened. The patellar button was similarly cemented into place. Once the cement had hardened, the knee was taken through a full range of motion to assess stability, balance, and patellar tracking. This was found to be optimal and the trial polyethylene was exchanged for the appropriately sized real implant. The wound was then thoroughly irrigated with normal saline. A 3-minute dilute Betadine lavage was performed. The knee was again irrigated using a pulsatile lavage device. A periarticular injection was used to locally infiltrate the capsular tissues surrounding the implant and prosthesis. Then No. 1 Polysorb and 0 VLoc 180 barbed sutures were used to close the arthrotomy. Then No. 1 Polysorb and 2-0 VLoc 90 sutures were used in the subcutaneous tissues. Then 4-0 undyed Vicryl and Dermabond skin adhesive was used to close the stab incisions made for the navigation pins. The skin was closed using both 3-0 VLoc 90 suture in a running subcuticular fashion and Dermabond skin adhesive. Once this was completed a sterile Aquacel dressing and compressive Carlos-wrap was applied. The patient was then awakened and taken to the PACU in stable condition. ESTRELLA RAMOS M.D. [id number]
== END 2018-09-07 13:40 | disposition home health service (06) | DRG 470 ==
LOC: FM/S 05:54
PROVIDERS: ADMIT Student in an Organized Health Care Education/Training Program; ATTEND Student in an Organized Health Care Education/Training Program
PROC: 8E0Y0CZ Robotic Assisted Procedure of Lower Extremity, Open Approach (ICD-10-PCS; 2018-09-05)
PROC: 0SRD0JZ Replacement of Left Knee Joint with Synthetic Substitute, Open Approach (ICD-10-PCS; principal; 2018-09-05 09:05)
DX: M17.12 Unilateral primary osteoarthritis, left knee (principal); D64.9 Anemia, unspecified; M06.9 Rheumatoid arthritis, unspecified; Z87.891 Personal history of nicotine dependence
CPT/HCPCS: 36415; 73560-TC-LT-FY; 80048; 85027; 88304-TC; 88311-TC; 94760; 97116-GP; 97163-GP; J0131; J1100